=== PATIENT | male | born 1980 | race Hispanic/Latino ===

== ENCOUNTER 2018-02-22 10:35 | Emergency (ER) | payer MEDICAID, OTHER ==
[2018-02-22 10:54] VITALS: RESP 18; TEMP 98
[2018-02-22 11:16] LABS: BASO # 0.02 K/mm3 (0.0-2.0); BASO % 0.3 % (0.0-3.0); EOS # 0.1 (0.0-0.7); EOS % 1.4 % (1.5-5.0); GRAN # 4.5 (1.4-6.5); GRAN % 58.4 % (50.0-68.0); HEMOGLOBIN 15.1 g/dL (14.0-18.0); LYMPH # 2.4 (1.2-3.4); LYMPH % 31.5 % (22.0-35.0); MEAN CELL VOLUME 91.4 fl (80.0-105.0); MEAN CORPUSCULAR HEMOGLOBIN 31.7 pg (25.0-35.0); MEAN CORPUSCULAR HGB CONC 34.6 g/dl (31.0-37.0); MEAN PLATELET VOLUME 9.8 fl (7.0-11.0); MONO # 0.7 (0.1-0.6); MONO % 8.4 % (1.0-6.0); RBC 4.77 10^6/uL (3.5-6.1); RED CELL DISTRIBUTION WIDTH 13.2 % (11.5-14.5); WHITE BLOOD COUNT 7.7 10^3/uL (4.5-11.0)
[2018-02-22 11:22] LABS: INR 1.13; PARTIAL THROMBOPLASTIN TIME 30.7 Seconds (25.1-36.5)
--- NOTE | 2018-02-22 11:22 | ED PDOC ---
Arrival/HPI - General Historian: Patient - Critical Care Narrative Critical Care (Text): 02/22/18 11:18 38 year old male with a past medical history of myocardial infarction (s/p 2 stents of LAD and RCA) who presents to the emergency department for chest pain that started at approximately 9:45a.m.. The patient states he was at work and resting when the chest pain began. He reports the pain starts in the right chest and radiates to the left side and up the anterior neck. The patient states he took his Aspirin and Brillenta as prescribed prior to coming in to the emergency department. He denies any alleviating or modifying factors. Patient denies any chest pain, shortness of breath, fevers, chills, nausea, vomiting, syncopal episodes, or any other complaints. [employer] Operator: Dr. Rodriguez Medical history: Myocardial infarction Surgical history: Stent placement in LAD and RCA, C5,6,7 Neck Fusion, Back Fusion L5-S1 Allergies: Denies Medications: Brillenta, Metoprolol, Aspirin, Atorvastatin - History of Present Illness Time/Duration: 4-6 hours Symptom Onset: Sudden Symptom Course: Unchanged Quality: Stabbing Severity Level: 4 Activities at Onset: Rest Context: Sitting <[place] Perez - Last Filed: 02/22/18 15:17> Past Medical History - Provider Review Nursing Documentation Reviewed: Yes - Cardiac Hx SC: Yes - Psychiatric Hx Substance Use: No - Surgical History Hx Orthopedic Surgery: Yes Other/Comment: CARDIAC STENTS X2 <[place] Perez - Last Filed: 02/22/18 15:17> Family/Social History - Physician Review Nursing Documentation Reviewed: Yes Family/Social History: No Known Family HX Smoking Status: Heavy Smoker > 10 Cigarettes Daily Hx Alcohol Use: No Hx Substance Use: No <[place] Perez - Last Filed: 02/22/18 15:17> Allergies/Home Meds <[place] Perez - Last Filed: 02/22/18 15:17> <Harry Johns - Last Filed: 02/22/18 15:37> Allergies/Adverse Reactions: Allergies No Known Allergies Allergy (Verified 02/22/18 10:51) Home Medications: Home Meds Medication Instructions Recorded Confirmed RX: Aspirin [Aspirin Chewable] 81 mg PO DAILY 02/22/18 02/22/18 RX: Atorvastatin [Lipitor] 40 mg PO DAILY 02/22/18 02/22/18 RX: Metoprolol Succinate 50 mg PO DAILY 02/22/18 02/22/18 [Kapsp[place] Sprinkle] RX: Nitroglycerin [Nitrostat] 0.4 mg SL PRN PRN 02/22/18 02/22/18 Ticagrelor [Brilinta] 90 mg PO DAILY 02/22/18 02/22/18 Review of Systems - Physician Review All systems were reviewed & negative as marked: Yes - Review of Systems Constitutional: Normal. absent: Fatigue, Weight Change Eyes: Normal. absent: Vision Changes, Photophobia ENT: Normal. absent: Hearing Changes, Tinnitus Respiratory: Normal. absent: Cough, Sputum Cardiovascular: Chest Pain. absent: Palpitations, Edema, Calf Pain, Syncope Gastrointestinal: Normal. absent: Abdominal Pain, Stool Changes, Constipation, Diarrhea Genitourinary Male: Normal. absent: Dysuria, Frequency Skin: Normal. absent: Rash, Laceration Neurological: Normal. absent: Headache, Dizziness Psychiatric: Normal. absent: Anxiety, Depression <[place] Perez - Last Filed: 02/22/18 15:17> Physical Exam Vital Signs Reviewed: Yes Vital Signs Temp Pulse Resp BP Pulse Ox 02/22/18 10:35 98 F 67 18 146/74 99 Temperature: Afebrile Blood Pressure: Hypertensive Pulse: Regular Respiratory Rate: Normal Appearance: Positive for: Well-Appearing, Non-Toxic, Comfortable Pain Distress: Mild Mental Status: Positive for: Alert and Oriented X 3. No: Confused - Systems Exam Head: Present: Atraumatic, Normocephalic. No: Abrasion Pupils: Present: PERRL. No: Sluggish Extroacular Muscles: Present: EOMI. No: Gaze Palsy Conjunctiva: Present: Normal. No: Injected Mouth: Present: Moist Mucous Membranes. No: Dry, Normal Teeth Neck: Present: Normal Range of Motion. No: Meningeal Signs, JVD Respiratory/Chest: Present: Clear to Auscultation, Good Air Exchange. No: Wheezes Cardiovascular: Present: Regular Rate and Rhythm, Normal S1, S2, Gallop. No: Murmurs, Tachycardic Abdomen: Present: Normal Bowel Sounds. No: Tenderness, McBurney's Point Tender, Ostomy Tubes Upper Extremity: Present: Normal Inspection. No: Cyanosis, Edema, Erythema Lower Extremity: Present: Normal Inspection. No: Edema, Parth's Sign Neurological: Present: CN II-XII Intact, Speech Normal Skin: Present: Dry, Normal Color Psychiatric: Present: Alert, Oriented x 3, Normal Insight <[place] Perez - Last Filed: 02/22/18 15:17> Vital Signs Temp Pulse Resp BP Pulse Ox 02/22/18 10:35 98 F 67 18 146/74 99 <Harry Johns - Last Filed: 02/22/18 15:37> Medical Decision Making ED Course and Treatment: 02/22/18 11:25 38 year old male with a past medical history of myocardial infarction (s/p 2 stents of LAD and RCA) who presents to the emergency department for chest pain. Myocardial infarction vs. Pneumonia vs. Pneumothorax Plan: CBC CMP Troponin CXR 02/22/18 15:00 Troponin (-)x2. Patient signed out AMA. 02/22/18 15:06 1. Patient to follow up with PMD within 2 days of discharge. 2. Follow up with [employer] Operator within 2 days of discharge. 3. Return to hospital for any new or worsening symptoms. - Lab Interpretations Lab Results: 02/22/18 11:00 Lab Results 02/22/18 11:00: WBC 7.7, RBC 4.77, Hgb 15.1, Hct 43.6, MCV 91.4, MCH 31.7, MCHC 34.6, RDW 13.2, Plt Count 227, MPV 9.8, Gran % 58.4, Lymph % (Auto) 31.5, [place] % (Auto) 8.4 H, Eos % (Auto) 1.4 L, Baso % (Auto) 0.3, Gran # 4.50, Lymph # (Auto) 2.4, [place] # (Auto) 0.7 H, Eos # (Auto) 0.1, Baso # (Auto) 0.02 - RAD Interpretation Radiology Orders: 02/22/18 11:03 CHEST PORTABLE [RAD] Stat 02/22/18 11:06 CXR [CHEST PORTABLE] [RAD] Stat <[place] Perez - Last Filed: 02/22/18 15:17> ED Course and Treatment: 02/22/18 10:49 EKG reviewed, shows: NSR at 61bpm with normal intervals and no ST elevations. 02/22/18 11:30 Patient Seen with Resident: In agreement with resident note which contains more details about the patient. Patient seen and evaluated with resident. Came up with plan and treatment together. Impression: 38 year old male who presents to the emergency department complaining of chest pain. Patient has troponin x 2 negative. CXR negative. No chest pain in the ED. Patient does not want to stay in the hospital for further treatment. He was explained the risks including and disability and he still wants to leave AMA. He has signed the needed document explained by me. 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 - Lab Interpretations Lab Results: 02/22/18 11:00 02/22/18 11:00 Lab Results 02/22/18 11:00: PT 13.0 H, INR 1.13, APTT 30.7 02/22/18 11:00: Sodium 140, Potassium 4.3, Chloride 105, Carbon Dioxide 25, Anion Gap 14, BUN 14, Creatinine 0.7 L, Est GFR ( Amer) > 60, Est GFR (Non-Af Amer) > 60, Random Glucose 109, Calcium 9.4, Total Bilirubin 0.4, AST 42, ALT 43, Alkaline Phosphatase 77, Troponin I Pending, Total Protein 7.8, Albumin 4.7, Globulin 3.1, Albumin/Globulin Ratio 1.5 02/22/18 11:00: WBC 7.7, RBC 4.77, Hgb 15.1, Hct 43.6, MCV 91.4, MCH 31.7, MCHC 34.6, RDW 13.2, Plt Count 227, MPV 9.8, Gran % 58.4, Lymph % (Auto) 31.5, [place] % (Auto) 8.4 H, Eos % (Auto) 1.4 L, Baso % (Auto) 0.3, Gran # 4.50, Lymph # (Auto) 2.4, [place] # (Auto) 0.7 H, Eos # (Auto) 0.1, Baso # (Auto) 0.02 - RAD Interpretation Radiology Orders: 02/22/18 11:06 CXR [CHEST PORTABLE] [RAD] Stat <Harry Johns - Last Filed: 02/22/18 15:37> - Scribe Statement The provider has reviewed the documentation as recorded by the Scribe Bettye Dash Provider Scribe Attestation: All medical record entries made by the Scribe were at my direction and personally dictated by me. I have reviewed the chart and agree that the record accurately reflects my personal performance of the history, physical exam, [facility] decision making, and the department course for this patient. I have also personally directed, reviewed, and agree with the discharge instructions and disposition. <Harry Johns - Last Filed: 02/22/18 15:37> Disposition/Present on Arrival - Present on Arrival Any Indicators Present on Arrival: No History of DVT/PE: No History of Uncontrolled Diabetes: No Urinary Catheter: No History of Decub. Ulcer: No History Surgical Site Infection Following: None - Disposition Have Diagnosis and Disposition been Completed?: Yes Disposition Time: 15:02 <[place] Perez - Last Filed: 02/22/18 15:17> <Harry Johns - Last Filed: 02/22/18 15:37> - Disposition Diagnosis: Chest pain Disposition: AGAINST MEDICAL ADVICE Patient Problems: Current Active Problems Problem Status Onset Chest pain Acute Condition: FAIR Discharge Instructions (ExitCare): Chest Pain (ED) Additional Instructions: 1. F/u with PMD within 2 days upon discharge. 2. F/u with [employer] Operator within 2 days upon discharge. 3. Return to hospital for any new or worsening symptoms. Referrals: FAMILY PROVIDER,NO [Primary Care Provider] - Follow up with primary
[2018-02-22 11:26] LABS: ALB/GLOB RATIO 1.5 (1.1-1.8); ALBUMIN 4.7 g/dL (3.0-4.8); ALT/SGPT 43 U/L (7-56); AST/SGOT 42 U/L (17-59); BLOOD UREA NITROGEN 14 mg/dL (7-21); CALCIUM 9.4 mg/dL (8.4-10.5); GFR NON-AFRICAN AMERICAN > 60
[2018-02-22 11:37] LABS: TROPONIN I < 0.01 ng/mL
--- NOTE | 2018-02-22 12:31 | CARD ---
APPROVED REPORT Date of service: 02/22/2018 EKG Measurement Heart [id number] <Conclusion> Normal sinus rhythm Normal ECG
[2018-02-22 13:07] LABS: BARBITURATES, UR NEGATIVE (NEGATIVE); BENZODIAZEPINES, UR NEGATIVE (NEGATIVE); OPIATES, UR NEGATIVE (NEGATIVE); PHENCYCLIDINE, UR NEGATIVE (NEGATIVE)
--- NOTE | 2018-02-22 13:09 | RAD ---
Date of service: 02/22/2018 HISTORY: chest pain COMPARISON: No prior. FINDINGS: LUNGS: No active pulmonary disease. PLEURA: No significant pleural effusion identified, no pneumothorax apparent. CARDIOVASCULAR: No aortic atherosclerotic calcification present. Normal cardiac size. No pulmonary vascular congestion. OSSEOUS STRUCTURES: No significant abnormalities. VISUALIZED UPPER ABDOMEN: Normal. OTHER FINDINGS: None. IMPRESSION: No active disease.
[2018-02-22 16:14] VITALS: BP 138/76; PULSE 73; O2SAT 100
== END 2018-02-22 15:00 | disposition left against medical advice (07) ==
LOC: ED 10:35
DX: R07.9 Chest pain, unspecified (principal); I25.2 Old myocardial infarction; Z95.5 Presence of coronary angioplasty implant and graft; F17.210 Nicotine dependence, cigarettes, uncomplicated